=== PATIENT | male | born 2000 | race Asian ===

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

== ENCOUNTER 2021-02-19 11:37 | Emergency (ER) | payer OTHER ==
[~2021-02-19] VITALS: Ht 180.3 cm; Wt 77.1 kg
[2021-02-19 11:42] VITALS: BP 154/92; TEMP 97.8
[2021-02-19 12:28] LABS: POTASSIUM 3.9 mmol/L (3.6-5.2); SODIUM 139 mmol/L (136-145)
[2021-02-19 13:03] LABS: PLATELET COUNT 232 K/uL (142-355)
== END 2021-02-19 13:41 | disposition home or self-care (01) ==
LOC: ED 11:37
PROVIDERS: Emergency Medicine Emergency Medical Services
DX: R10.13 Epigastric pain (principal)
CPT/HCPCS: 36415; 80053; 82150; 83690; 83735; 84484; 85027; 93005; 96360; 96375; 99284; J2405; J3490; Q9963

== ENCOUNTER 2021-06-14 14:05 | Emergency (ER) | payer OTHER ==
[~2021-06-14] VITALS: Ht 180.3 cm; Wt 77.1 kg
[2021-06-14 14:20] VITALS: BP 133/63; TEMP 98.7
== END 2021-06-14 15:12 | disposition home or self-care (01) ==
LOC: ED 14:05
DX: M54.59 Other low back pain (principal); G89.29 Other chronic pain
CPT/HCPCS: 81000; 99282

== ENCOUNTER 2021-07-13 17:41 | Emergency (ER) | payer OTHER ==
[~2021-07-13] VITALS: Ht 180.3 cm; Wt 77.1 kg
[2021-07-13 19:05] VITALS: BP 118/69; TEMP 97.8
== END 2021-07-13 19:10 | disposition home or self-care (01) ==
LOC: ED 17:41
DX: J03.90 Acute tonsillitis, unspecified (principal); F17.210 Nicotine dependence, cigarettes, uncomplicated
CPT/HCPCS: 87651; 99282

== ENCOUNTER 2022-01-22 16:00 | Emergency (ER) | payer OTHER ==
[~2022-01-22] VITALS: Ht 180.3 cm; Wt 102.1 kg
[2022-01-22 16:09] VITALS: TEMP 98.3
[2022-01-22] MEDS ORDERED: TAMIFLU75 MG PO (16:41)
[2022-01-22 17:05] VITALS: BP 148/82
== END 2022-01-22 17:07 | disposition home or self-care (01) ==
LOC: ED 16:00
DX: J10.1 Influenza due to other identified influenza virus with other respiratory manifestations (principal); H61.23 Impacted cerumen, bilateral
CPT/HCPCS: 87502; 99283

== ENCOUNTER 2022-02-08 14:14 | Emergency (ER) | payer OTHER ==
[~2022-02-08] VITALS: Ht 180.3 cm; Wt 102.1 kg
[~2022-02-08 14:14] MED LIST: TAMIFLU75 MG PO
[2022-02-08 14:25] VITALS: BP 133/67; TEMP 98.6
== END 2022-02-08 15:29 | disposition home or self-care (01) ==
LOC: ED 14:14
DX: S91.332A Puncture wound without foreign body, left foot, initial encounter (principal); W45.0XXA Nail entering through skin, initial encounter; Y92.89 Other specified places as the place of occurrence of the external cause
CPT/HCPCS: 90471; 90715; 99282

== ENCOUNTER 2022-02-16 11:39 | Emergency (ER) | payer OTHER ==
[~2022-02-16] VITALS: Ht 180.3 cm; Wt 102.1 kg
[2022-02-16 11:52] VITALS: TEMP 98.7
[2022-02-16 12:33] LABS: PLATELET COUNT 262 K/uL (142-355)
[2022-02-16 12:43] LABS: PARTIAL THROMBOPLASTIN TIME 22.9 SECONDS (24.5-33.6)
[2022-02-16 12:49] LABS: POTASSIUM 3.5 mmol/L (3.6-5.2)
[2022-02-16 14:40] VITALS: BP 113/76
== END 2022-02-16 14:40 | disposition home or self-care (01) ==
LOC: ED 11:39
PROVIDERS: Family Medicine
DX: M62.838 Other muscle spasm (principal); T40.715A Adverse effect of cannabis, initial encounter; X58.XXXA Exposure to other specified factors, initial encounter; Y92.89 Other specified places as the place of occurrence of the external cause
CPT/HCPCS: 80053; 80307; 81002; 82550; 84484; 85027; 85610; 85730; 96360; 96374; 99284; J2060

== ENCOUNTER 2022-05-13 10:59 | Emergency (ER) | payer OTHER ==
[~2022-05-13] VITALS: Ht 180.3 cm; Wt 102.1 kg
[2022-05-13 11:33] VITALS: BP 121/60; TEMP 99
== END 2022-05-13 12:50 | disposition home or self-care (01) ==
LOC: ED 10:59
DX: N34.1 Nonspecific urethritis (principal)
CPT/HCPCS: 81002; 87490; 87590; 99282

== ENCOUNTER 2022-09-12 07:42 | Emergency (ER) | payer OTHER ==
[~2022-09-12] VITALS: Ht 180.3 cm; Wt 104.3 kg
[2022-09-12 07:45] VITALS: TEMP 98.1
[2022-09-12 08:30] VITALS: BP 138/73
== END 2022-09-12 08:30 | disposition home or self-care (01) ==
LOC: ED 07:42
DX: H60.02 Abscess of left external ear (principal); F17.210 Nicotine dependence, cigarettes, uncomplicated
CPT/HCPCS: 99281